=== PATIENT | male | born 1940 | race Caucasian/White ===

== ENCOUNTER 2017-11-16 11:01 | Emergency (ER) | payer MEDICARE ==
[2017-11-16 11:30] VITALS: BP 139/71
--- NOTE | 2017-11-16 11:42 | UC ---
General HPI - HPI Summary HPI Summary: Patient is complaining of a sore throat for the past 4 days he notes the discomfort mostly with swallow. He denies any associated trouble breathing or with passing liquids or foods when he swallows. He denies any associated fever , shortness of breath or difficulty with speech or opening his mouth. - History of Current Complaint Chief Complaint: UCGeneralIllness Stated Complaint: ST Time Seen by Provider: 11/16/17 11:27 Hx Obtained From: Patient Onset/Duration: Gradual Onset Timing: Constant Pain Intensity: 2 Associated Signs & Symptoms: Negative: Chest Pain, Fever, SOB - Allergy/Home Medications Allergies/Adverse Reactions: Allergies Allergy/AdvReac Type Severity Reaction Status Date / Time No Known Allergies Allergy Verified 11/16/17 11:23 Home Medications: Home Medications Pain Medication 1 tab PO DAILY PRN 11/16/17 [History] PMH/Surg Hx/FS Hx/Imm Hx - Additional Past Medical History Additional PMH: Blood clots, hyperlipidemia, cardiac disease with pacemaker-defibrillator, atrial fibrillation, hypertension, TIA and mitral valve insufficiency. - Surgical History Surgical History: Yes Surgery Procedure, Year, and Place: defibrillator. shoulders. cortisone injections in knees - Family History Known Family History: Positive: Cardiac Disease - Social History Occupation: Retired Lives: Alone Alcohol Use: None Substance Use Type: None Smoking Status (MU): Never Smoked Tobacco - Immunization History Vaccination Up to Date: Yes Review of Systems Constitutional: Negative Skin: Negative Eyes: Negative ENT: Sore Throat Respiratory: Negative Cardiovascular: Negative Gastrointestinal: Negative Genitourinary: Negative Motor: Negative Neurovascular: Negative Musculoskeletal: Negative Neurological: Negative Psychological: Negative Is Patient Immunocompromised?: Yes All Other Systems Reviewed And Are Negative: Yes Physical Exam Triage Information Reviewed: Yes Appearance: Well-Appearing Vital Signs: Initial Vital Signs Temp 97.4 F 11/16/17 11:17 Pulse 61 11/16/17 11:17 Resp 15 11/16/17 11:17 BP 139/71 11/16/17 11:17 Pulse Ox 97 11/16/17 11:17 Vital Signs Reviewed: Yes Eyes: Positive: Conjunctiva Clear ENT: Positive: Pharyngeal erythema - with mild swelling, TMs normal, Uvula midline. Negative: Nasal congestion, Nasal drainage, Trismus, Muffled voice, Hoarse voice Neck: Positive: Supple, Nontender, Enlarged Nodes @ - peritonsilar Respiratory: Positive: Lungs clear, Normal breath sounds Cardiovascular: Positive: RRR, No Murmur, Pulses Normal Abdomen Description: Positive: Nontender, No Organomegaly, Soft Bowel Sounds: Positive: Present Musculoskeletal: Positive: ROM Intact, No Edema Neurological: Positive: Alert Psychological: Positive: Age Appropriate Behavior Skin Exam: Normal Diagnostics - Laboratory Diagnostic Studies Completed/Ordered: rapid strep=neg. Course/Dx - Course Course Of Treatment: non toxic. no concrn for peritonsilar abscess. rapid strep = neg; however, pt ill x 4 days. no uri. exam c/w pharyngitis. he 77yo with may comorbid conditions including a bad cardiac valve thus will cover for bacterial infection with pcn. - Differential Dx - Multi-Symptom Provider Diagnoses: pharyngitis Discharge - Sign-Out/Discharge Documenting (check all that apply): Patient Departure All imaging exams completed and their final reports reviewed: No Studies - Discharge Plan Condition: Stable Disposition: HOME Prescriptions: Penicillin VK TAB* [Penicillin VK 250 mg Tab*] 500 mg PO BID 10 Days #20 tab Patient Education Materials: Pharyngitis (ED) Referrals: Braden Woodward MD [Primary Care Provider] - 3 Days Additional Instructions: FOLLOW UP WITH YOUR DOCTOR IN 3 DAYS FOR A WARFARIN CHECK - Billing Disposition and Condition Condition: STABLE Disposition: Home
== END 2017-11-16 12:17 | disposition home or self-care (01) ==
LOC: UCCORT 11:01
DX: J02.9 Acute pharyngitis, unspecified (principal); I10 Essential (primary) hypertension; Z95.811 Presence of heart assist device
CPT/HCPCS: 87651; 99212; G0463

== ENCOUNTER 2017-11-24 13:52 | Emergency (ER) | payer MEDICARE ==
[2017-11-24 14:57] VITALS: BP 109/70
--- NOTE | 2017-11-24 15:01 | ED ---
Throat Pain/Nasal Congestion - HPI Summary HPI Summary: pt presents to the ED for evaluation of his sore throat. he states he has been on antibiotics for 1 week. he was feeling better and now he is feeling just as bad as he did before he started his antibiotics. he states he has 2 more days of his penicillin left. he denies any n/v/diarrhea. he does state that he has had some chills. - History of Current Complaint Hx Obtained From: Patient Onset/Duration: Sudden Onset Severity: Moderate Associated Signs And Symptoms: Positive: Hoarseness. Negative: FB Sensation, Drooling, Wheezing, Sinus Discomfort, Nasal Discharge - Allergies/Home Medications Allergies/Adverse Reactions: Allergies Allergy/AdvReac Type Severity Reaction Status Date / Time No Known Allergies Allergy Verified 11/24/17 14:45 Home Medications: Home Medications DULoxetine DR CAP* [Cymbalta CAP*] 60 mg PO DAILY 11/24/17 [History Confirmed ] PMH/Surg Hx/FS Hx/Imm Hx Previously Healthy: Yes Endocrine/Hematology History: Reports: Hx Anticoagulant Therapy Cardiovascular History: Reports: Hx Hypertension Respiratory History: Denies: Hx Asthma GI History: Denies: Hx Cirrhosis History: Denies: Hx Acute Renal Failure Neurological History: Denies: Hx Seizures Psychiatric History: Denies: Hx Anxiety - Surgical History Surgery Procedure, Year, and Place: defibrillator. shoulders. cortisone injections in knees Infectious Disease History: Denies: Traveled Outside the [place] in Last 30 Days - Family History Known Family History: Positive: Cardiac Disease - Social History Alcohol Use: None Substance Use Type: Reports: None Smoking Status (MU): Never Smoked Tobacco Review of Systems Positive: Chills. Negative: Fever, Fatigue, Skin Diaphoresis Positive: Sore Throat. Negative: Epistaxis, Dental Pain, Ear Ache, Nasal Discharge Cardiovascular: Negative Respiratory: Negative Gastrointestinal: Negative Genitourinary: Negative Musculoskeletal: Negative Skin: Negative Neurological: Negative Psychological: Normal All Other Systems Reviewed And Are Negative: No Physical Exam Triage Information Reviewed: Yes Vital Signs Reviewed: Yes Appearance: Positive: Well-Appearing, No Pain Distress, Well-Nourished Skin: Positive: Warm, Dry Head/Face: Positive: Normal Head/Face Inspection Eyes: Positive: Normal, EOMI ENT: Positive: Pharyngeal erythema - mild, more noticeable to the right peritonsillar area Neck: Positive: Supple, Nontender, No Lymphadenopathy Respiratory/Lung Sounds: Positive: Clear to Auscultation, Breath Sounds Present Cardiovascular: Positive: Normal, RRR Abdomen Description: Positive: Nontender, Soft Bowel Sounds: Positive: Present Musculoskeletal: Positive: Normal, Strength/ROM Intact Neurological: Positive: Normal, Sensory/Motor Intact, CN Intact II-III Psychiatric: Positive: Normal AVPU Assessment: Alert EENT Course/Dx - Course Course Of Treatment: pt's inr on 11/19/17 was 1.98. he is on coumadin and was started on pcn. he is due for a recheck tomorrow. rapid strep done today. result negative. I discussed with pt the importance of f/u with pcp. I told him to finish his abx and keep his appt to check his inr. I told him to take tylenol for pain. - Differential Diagnoses Differential Diagnoses: Otitis Media, Pharyngitis, Sinusitis, Tonsilitis, Uveitis, Other - uri - Diagnoses Provider Diagnoses: Pharyngitis Discharge - Sign-Out/Discharge Documenting (check all that apply): Patient Departure All imaging exams completed and their final reports reviewed: No Studies - Discharge Plan Condition: Stable Disposition: HOME Patient Education Materials: Pharyngitis (ED) Referrals: Braden Woodward MD [Primary Care Provider] - Additional Instructions: Take tyelnol for pain. please follow up with your primary care physician. Keep your appt for a repeat INR tomorrow. It is important to take all medications as previously instructed. finish your antibiotics to completion. - Billing Disposition and Condition Condition: STABLE Disposition: Home
== END 2017-11-24 15:43 | disposition home or self-care (01) ==
LOC: UCCORT 13:52
DX: J02.9 Acute pharyngitis, unspecified (principal); I10 Essential (primary) hypertension; Z79.01 Long term (current) use of anticoagulants
CPT/HCPCS: 87651; 99211; G0463

== ENCOUNTER 2019-09-15 11:30 | Inpatient (IN) ==
[~2019-09-15 11:30] MED LIST: Buffered Lidocaine 1% SYRIN 1 ml INTRADERM ONE; Famotidine IV 10 MG/ML 2 ml VIAL (20 mg) IV ONE; Lactated Ringers 1000 ml BAG 1,000 ML IV SCH
[2019-09-15] MEDS ORDERED: ceFAZolin 2 GM PREMIX 2 GM/50 ML BAG ONE (14:04)
[2019-09-15] MEDS ORDERED: Famotidine IV 10 MG/ML 2 ml VIAL (20 mg) ONE (14:05)
[2019-09-15 14:57] LABS: Activated Partial Thrombo Time 29.8 seconds (26.0-38.0); INR 1.36 (0.82-1.09)
[2019-09-15] MEDS ORDERED: Bupivacaine 0.5% SDV PF 30ML VIAL ONE (15:05)
[2019-09-15] MEDS ORDERED: Bupivacaine 0.25% SDV 30 ML ONE ×2 (15:06→15:37)
[2019-09-15] MEDS ORDERED: Midazolam 2 mg/2 ml VIAL 1 mg/ml 2 ml VIAL (2 mg) ONE (16:15)
[2019-09-15] MEDS ORDERED: fentaNYL 100 mcg/2 ml 50 MCG/ML VIAL ONE ×3 (16:15→19:25)
[2019-09-15] MEDS ORDERED: ROPIVACAINE 5 MG/ML 30 ML BTL (0.5%) ONE (16:53)
[2019-09-15] MEDS ORDERED: Lidocaine 2% PF 5 ML VIAL ONE (18:51)
[2019-09-15] MEDS ORDERED: Magnesium Hydroxide LIQ 30 ML UDC PO PRN (18:57)
[2019-09-15] MEDS ORDERED: Ondansetron 4 mg VIAL 2 MG/ML 2 ml VIAL IV PRN ×2 (18:57→19:16)
[2019-09-15] MEDS ORDERED: diPHENhydraMINE IV 50 MG/ML 1 ml VIAL (BENADRYL) IV PRN (18:57)
[2019-09-15] MEDS ORDERED: Lactulose 30 ml UDC PO PRN (18:57)
[2019-09-15] MEDS ORDERED: oxyCODONE/Acetamin 5/325 mg TAB PO PRN (18:57)
[2019-09-15] MEDS ORDERED: Ondansetron ODT 4 mg TAB 4 MG TAB PO PRN (18:57)
[2019-09-15] MEDS ORDERED: Morphine 2 MG/ML SYRINGE IV PRN (18:57)
[2019-09-15] MEDS ORDERED: diPHENhydraMINE 25 mg TAB PO PRN (18:57)
[2019-09-15] MEDS ORDERED: Naloxone 0.4 mg VIAL 0.4 mg/ml 1 ml VIAL IV PRN (19:16)
[2019-09-15] MEDS ORDERED: HYDROmorphone 1 MG/1 ML SYRINGE IV PRN (19:16)
[2019-09-15] MEDS ORDERED: fentaNYL 100 mcg/2 ml 50 MCG/ML VIAL IV PRN (19:16)
[2019-09-15] MEDS ORDERED: Meperidine 50 mg/ml SYRINGE 1 ml IV ONE (19:18)
[2019-09-15] MEDS ORDERED: Meperidine 50 mg/ml SYRINGE 1 ml ONE (19:24)
[2019-09-15] MEDS: Magnesium Hydroxide LIQ 30 ML UDC PO SCH (21:41)
[2019-09-15] MEDS: Lactated Ringers 1000 ml BAG 1,000 ML IV SCH (21:53)
[2019-09-16] MEDS: ceFAZolin 1 GM ADVAN 1 GM in NS 0.9% 50 ML 50 ML IVPB SCH ×3 (01:10→17:41)
[2019-09-16] MEDS ORDERED: NS 0.9% 50 ML 50 ML ONE (01:35)
[2019-09-16] MEDS: Lactated Ringers 1000 ml BAG 1,000 ML IV SCH (06:52)
[2019-09-16] MEDS: Vitamin THERAPEUTIC TAB PO SCH (08:24)
[2019-09-16] MEDS: Magnesium Hydroxide LIQ 30 ML UDC PO SCH ×2 (08:26→21:39)
[2019-09-16 09:05] LABS: Hematocrit 38 % (42-52); Hemoglobin 13.4 g/dL (14.0-18.0); Platelet Count 125 10^3/uL (150-450)
[2019-09-16 09:19] LABS: BUN/Creatinine Ratio 19.2 (8-20); EGFR African American 83.6 (>60); EGFR Non-African American 69.1 (>60); Potassium 4.3 mmol/L (3.5-5.0)
[2019-09-16] MEDS: Enoxaparin 40 MG/0.4 ML SYR SUBCUT SCH (11:55)
[2019-09-17 06:26] LABS: Hematocrit 33 % (42-52); Mean Platelet Volume 8.7 fL (7.4-10.4); Platelet Count 108 10^3/uL (150-450)
[2019-09-17] MEDS: Vitamin THERAPEUTIC TAB PO SCH (08:49)
[2019-09-17] MEDS: Magnesium Hydroxide LIQ 30 ML UDC PO SCH ×2 (08:50→21:32)
[2019-09-17] MEDS: Enoxaparin 40 MG/0.4 ML SYR SUBCUT SCH (12:33)
[2019-09-18 04:43] LABS: Hematocrit 35 % (42-52); Hemoglobin 12.3 g/dL (14.0-18.0); Mean Platelet Volume 8.3 fL (7.4-10.4); Platelet Count 122 10^3/uL (150-450)
[2019-09-18] MEDS ORDERED: Scopolamine PATCH Remove NOTE PATCH OFF ONE (06:00)
[2019-09-18] MEDS: Magnesium Hydroxide LIQ 30 ML UDC PO SCH ×2 (09:48→20:52)
[2019-09-18] MEDS: Vitamin THERAPEUTIC TAB PO SCH (09:48)
[2019-09-18] MEDS: Enoxaparin 40 MG/0.4 ML SYR SUBCUT SCH (13:02)
[2019-09-19 05:53] LABS: Hematocrit 35 % (42-52); Hemoglobin 12.2 g/dL (14.0-18.0); Mean Platelet Volume 8.6 fL (7.4-10.4); Platelet Count 139 10^3/uL (150-450)
[2019-09-19] MEDS: Magnesium Hydroxide LIQ 30 ML UDC PO SCH (08:43)
[2019-09-19] MEDS: Vitamin THERAPEUTIC TAB PO SCH (08:44)
[2019-09-19] MEDS: Enoxaparin 40 MG/0.4 ML SYR SUBCUT SCH (12:05)
[2019-09-20] MEDS: Magnesium Hydroxide LIQ 30 ML UDC PO SCH ×3 (02:42→21:33)
[2019-09-20 06:49] LABS: Hematocrit 34 % (42-52); Hemoglobin 11.9 g/dL (14.0-18.0); Mean Platelet Volume 7.7 fL (7.4-10.4); Platelet Count 165 10^3/uL (150-450)
[2019-09-20] MEDS: Vitamin THERAPEUTIC TAB PO SCH (08:54)
[2019-09-20] MEDS: Enoxaparin 40 MG/0.4 ML SYR SUBCUT SCH (12:16)
[2019-09-20] MEDS ORDERED: Enoxaparin 60 MG/0.6 ML SYR SUBCUT ONE (13:15)
[2019-09-20 13:40] LABS: INR 1.15 (0.82-1.09)
[2019-09-20] MEDS: Enoxaparin 100 MG/ML SYR SUBCUT SCH (21:32)
[2019-09-21 07:53] VITALS: BP 145/84
[2019-09-21] MEDS: Enoxaparin 100 MG/ML SYR SUBCUT SCH (08:30)
[2019-09-21] MEDS: Magnesium Hydroxide LIQ 30 ML UDC PO SCH (08:36)
[2019-09-21] MEDS: Vitamin THERAPEUTIC TAB PO SCH (08:36)
[2019-09-21 09:13] LABS: INR 1.23 (0.82-1.09)
[2019-09-21] MEDS ORDERED: Warfarin DAILY REMINDER **NOTE FOLLOW UP SCH (17:00)
== END 2019-09-21 11:01 | DRG 470 ==
LOC: AA 13:44 → INTOOBSV 13:44 → SSU 20:55
PROVIDERS: ADMIT Orthopaedic Surgery Adult Reconstructive Orthopaedic Surgery; ATTEND Orthopaedic Surgery Adult Reconstructive Orthopaedic Surgery

== ENCOUNTER 2019-09-27 03:11 | Observation (INO) ==
[2019-09-27] MEDS ORDERED: NS 0.9% 1000 ml BAG 1,000 ML IV ONE (03:30)
[2019-09-27] MEDS ORDERED: Morphine 4 MG/ML VIAL (1 ml) IV PRN (03:30)
[2019-09-27] MEDS ORDERED: Morphine 4 MG/ML VIAL (1 ml) IV ONE (03:30)
[2019-09-27 04:04] LABS: ABS Basophils 0.1 10^3/ul (0-0.2); ABS Eosinophils 0.6 10^3/ul (0-0.6); ABS Lymphocytes 0.8 10^3/ul (1.0-4.8); ABS Monocytes 0.8 10^3/ul (0-0.8); ABS Neutrophils 10.5 10^3/ul (1.5-7.7); Eosinophil % 4.4 %; Hematocrit 38 % (42-52); Hemoglobin 12.7 g/dL (14.0-18.0); Mean Corpuscular HGB Conc 34 g/dL (31-36); Mean Corpuscular Hemoglobin 31 pg (27-31); Mean Corpuscular Volume 92 fL (80-94); Mean Platelet Volume 7.4 fL (7.4-10.4); Platelet Count 304 10^3/uL (150-450); Red Blood Count 4.08 10^6 /uL (4.18-5.48); Red Cell Distribution Width 15 % (10-15); White Blood Count 12.7 10^3/uL (3.5-10.8)
[2019-09-27 04:09] LABS: INR 2.44 (0.82-1.09)
[2019-09-27 04:35] LABS: Albumin 4.1 g/dL (3.2-5.2); Anion Gap 8 mmol/L (2-11); CO2 Carbon Dioxide 26 mmol/L (22-32); Calcium 9.1 mg/dL (8.6-10.3); Chloride 101 mmol/L (101-111); Potassium 4.1 mmol/L (3.5-5.0); Sodium 135 mmol/L (135-145)
[2019-09-27 04:41] LABS: ALT 137 U/L (7-52); AST 32 U/L (13-39); Albumin/Globulin Ratio 1.3 (1-3); Alkaline Phosphatase 129 U/L (34-104); BUN/Creatinine Ratio 29.2 (8-20); Blood Urea Nitrogen 26 mg/dL (6-24); C Reactive Protein 22.32 mg/L (<8.01); EGFR African American 99.8 (>60); EGFR Non-African American 82.5 (>60); Globulin 3.1 g/dL (2-4); Glucose 128 mg/dL (70-100); Total Protein 7.2 g/dL (6.4-8.9)
[2019-09-27 05:06] LABS: Erythrocyte Sed Rate 45 mm/Hr (0-19)
[2019-09-27 07:21] LABS: Urine Appearance Clear; Urine Bilirubin Negative (Negative); Urine Blood 1+ (Negative); Urine Color Yellow; Urine Glucose Negative (Negative); Urine Ketones Negative (Negative); Urine Nitrite Negative (Negative); Urine Protein Negative (Negative); Urine Specific Gravity 1.016 (1.010-1.030); Urine Urobilinogen Negative (Negative)
[2019-09-27 07:39] LABS: Urine Bacteria Absent (Absent); Urine Red Blood Cell Trace(0-2/hpf) (Absent); Urine White Blood Cell Trace(0-5/hpf) (Absent)
[2019-09-27] MEDS ORDERED: Ondansetron 4 mg VIAL 2 MG/ML 2 ml VIAL IV PRN (10:29)
[2019-09-27 10:51] LABS: Acetaminophen < 15 mcg/mL
[2019-09-27 12:41] LABS: TSH Ultra Thyroid Stim Horm 1.38 mcIU/mL (0.34-5.60)
[2019-09-27 12:52] LABS: Vitamin B12 250 pg/mL (180-914)
[2019-09-27] MEDS: Polyethylene Glycol 3350 17 GM PACKET PO SCH (13:32)
[2019-09-27 15:02] LABS: Creatine Kinase 25 U/L (10-223)
[2019-09-27] MEDS: Warfarin DAILY REMINDER **NOTE FOLLOW UP SCH (17:18)
[2019-09-28 05:33] LABS: ABS Eosinophils 0.6 10^3/ul (0-0.6); ABS Lymphocytes 0.9 10^3/ul (1.0-4.8); ABS Monocytes 0.6 10^3/ul (0-0.8); ABS Neutrophils 8.8 10^3/ul (1.5-7.7); Eosinophil % 5.2 %; Hematocrit 34 % (42-52); Hemoglobin 11.8 g/dL (14.0-18.0); Lymphocyte % 8.4 %; Mean Corpuscular HGB Conc 34 g/dL (31-36); Mean Corpuscular Hemoglobin 32 pg (27-31); Mean Corpuscular Volume 92 fL (80-94); Mean Platelet Volume 7.5 fL (7.4-10.4); Platelet Count 302 10^3/uL (150-450); Red Blood Count 3.73 10^6 /uL (4.18-5.48); Red Cell Distribution Width 14 % (10-15); White Blood Count 10.9 10^3/uL (3.5-10.8)
[2019-09-28 11:43] LABS: Albumin 3.8 g/dL (3.2-5.2); Albumin/Globulin Ratio 1.2 (1-3); BUN/Creatinine Ratio 26.6 (8-20); Calcium 9.4 mg/dL (8.6-10.3); EGFR African American 114.5 (>60); EGFR Non-African American 94.6 (>60); Globulin 3.1 g/dL (2-4); Indirect Bilirubin 1.1 mg/dL (0.3-1.0); Total Bilirubin 1.3 mg/dL (0.2-1.0); Total Protein 6.9 g/dL (6.4-8.9)
[2019-09-28] MEDS: Polyethylene Glycol 3350 17 GM PACKET PO SCH (14:26)
[2019-09-28] MEDS: Warfarin DAILY REMINDER **NOTE FOLLOW UP SCH (17:21)
[2019-09-29 05:45] LABS: ABS Eosinophils 0.6 10^3/ul (0-0.6); ABS Lymphocytes 0.9 10^3/ul (1.0-4.8); ABS Monocytes 0.6 10^3/ul (0-0.8); ABS Neutrophils 6.6 10^3/ul (1.5-7.7); Eosinophil % 6.6 %; Hematocrit 35 % (42-52); Hemoglobin 11.9 g/dL (14.0-18.0); Lymphocyte % 10.5 %; Mean Corpuscular HGB Conc 34 g/dL (31-36); Mean Corpuscular Hemoglobin 32 pg (27-31); Mean Corpuscular Volume 93 fL (80-94); Mean Platelet Volume 7.4 fL (7.4-10.4); Platelet Count 310 10^3/uL (150-450); Red Blood Count 3.73 10^6 /uL (4.18-5.48); Red Cell Distribution Width 14 % (10-15); White Blood Count 8.8 10^3/uL (3.5-10.8)
[2019-09-29 05:52] LABS: INR 2.54 (0.82-1.09)
[2019-09-29 06:02] LABS: Albumin 3.5 g/dL (3.2-5.2); Albumin/Globulin Ratio 1.2 (1-3); BUN/Creatinine Ratio 32.1 (8-20); EGFR African American 111.2 (>60); EGFR Non-African American 91.9 (>60); Globulin 2.9 g/dL (2-4); Potassium 3.9 mmol/L (3.5-5.0); Total Bilirubin 1.2 mg/dL (0.2-1.0); Total Protein 6.4 g/dL (6.4-8.9)
[2019-09-29] MEDS: Polyethylene Glycol 3350 17 GM PACKET PO SCH (09:27)
[2019-09-29 10:43] VITALS: BP 130/78
== END 2019-09-29 12:20 | disposition home or self-care (01) ==
LOC: ED 03:11 → MED 03:11
PROVIDERS: ADMIT Internal Medicine; ATTEND Internal Medicine